=== PATIENT | female | born 1990 | race Caucasian/White ===

== ENCOUNTER 2018-07-12 14:26 | Emergency (ER) | payer OTHER, SELFPAY ==
[2018-07-12] MEDS ORDERED: METOCLOPRAMIDE 10 MG/2mL INJ ONE (15:51)
[2018-07-12] MEDS ORDERED: NA CHLORIDE 0.9% 1,000 ML ONE (15:52)
[2018-07-12] MEDS ORDERED: KETOROLAC 30 MG/ML INJ ONE (15:52)
[2018-07-12] MEDS ORDERED: DIPHENHYDRAMINE 50 MG/ML VIAL ONE (15:52)
--- NOTE | 2018-07-12 15:56 | RAD REPORT ---
EXAM DESCRIPTION: CT - Head Brain Wo Cont - 07/12/2018 3:19 pm CLINICAL HISTORY: HEADACHE COMPARISON: <Comparisons> TECHNIQUE: All CT scans are performed using dose optimization technique as appropriate and may inclu de automated exposure control or mA/KV adjustment according to patient size. FINDINGS: No intracranial hemorrhage, hydrocephalus or extra-axial fluid collection.No areas of brai n edema or evidence of midline shift. The paranasal sinuses and mastoids are clear. The calvarium is intact. IMPRESSION: No acute intracranial abnormality.
--- NOTE | 2018-07-12 16:47 | EDPHYS ---
Physician Documentation [facility] Name: Jeny Crum Age: 28 yrs Sex: Female : 1990 Arrival Date: 07/12/2018 Time: 14:31 Bed 14 Private MD: None, None ED Physician Oscar Betts HPI: 07/12 15:23 This 28 yrs old Female presents to ER via Ambulatory with complaints of kb Headache. 15:23 The patient complains of pain to the entire head. The patient describes the headache as kb constant. Onset: The symptoms/episode began/occurred 10 day(s) ago. Associated signs and symptoms: Pertinent positives: Photophobia muscle tightness in shoulders and neck. Severity of symptoms: At its worst the pain was moderate, in the emergency department the pain is unchanged. Headache History: Denies prior headaches. The symptoms are alleviated by nothing. the symptoms are aggravated by nothing. The patient has not experienced similar symptoms in the past. The patient has not recently seen a physician. 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 - Social history:: Smoking status: Patient uses tobacco products, smokes one-half pack cigarettes per day. - Ebola Screening: : Patient denies travel to an Ebola-affected area in the 21 days before illness onset. ROS: 15:23 Constitutional: Negative for fever, chills, and weight loss, ENT: Negative for injury, kb pain, and discharge, Neck: Negative for injury, pain, and swelling, Cardiovascular: Negative for chest pain, palpitations, and edema, Respiratory: Negative for shortness of breath, cough, wheezing, and pleuritic chest pain, Abdomen/GI: Negative for abdominal pain, nausea, vomiting, diarrhea, and constipation, Back: Negative for injury and pain, MS/Extremity: Negative for injury and deformity, Skin: Negative for injury, rash, and discoloration. 15:23 Neuro: Positive for headache. Exam: 15:23 Constitutional: This is a well developed, well nourished patient who is awake, alert, kb and in no acute distress. Head/Face: Normocephalic, atraumatic. ENT: Nares patent. No nasal discharge, no septal abnormalities noted. Tympanic membranes are normal and external auditory canals are clear. Oropharynx with no redness, swelling, or masses, exudates, or evidence of obstruction, uvula midline. Mucous membranes moist. Neck: Trachea midline, no thyromegaly or masses palpated, and no cervical lymphadenopathy. Supple, full range of motion without nuchal rigidity, or vertebral point tenderness. No Meningismus. Chest/axilla: Normal chest wall appearance and motion. Nontender with no deformity. No lesions are appreciated. Cardiovascular: Regular rate and rhythm with a normal S1 and S2. No gallops, murmurs, or rubs. Normal PMI, no JVD. No pulse deficits. Respiratory: Lungs have equal breath sounds bilaterally, clear to auscultation and percussion. No rales, rhonchi or wheezes noted. No increased work of breathing, no retractions or nasal flaring. Abdomen/GI: Soft, non-tender, with normal bowel sounds. No distension or tympany. No guarding or rebound. No evidence of tenderness throughout. Skin: Warm, dry with normal turgor. Normal color with no rashes, no lesions, and no evidence of cellulitis. MS/ Extremity: Pulses equal, no cyanosis. Neurovascular intact. Full, normal range of motion. Neuro: Awake and alert, GCS 15, oriented to person, place, time, and situation. Cranial nerves II-XII grossly intact. Motor strength 5/5 in all extremities. Sensory grossly intact. Cerebellar exam normal. Normal gait. Vital Signs: 14:47 BP 114 / 94; Pulse 68; Resp 17; Temp 97.5(TE); Pulse Ox 100% on R/A; Weight 53.07 kg tw2 (R); Pain 8/10; 15:51 BP 120 / 89; Pulse 69; Resp 16; Pulse Ox 100% on R/A; rb1 16:50 BP 107 / 79; Pulse 69; Resp 17; Pulse Ox 100% on R/A; Pain 7/10; rb1 17:25 BP 103 / 74; Pulse 61; Resp 16; Pulse Ox 100% on R/A; rb1 [place] Coma Score: 15:23 Eye Response: spontaneous(4). Verbal Response: oriented(5). Motor Response: obeys kb commands(6). Total: 15. MDM: 14:53 Patient medically screened. kb 15:23 Data reviewed: vital signs, nurses notes. Data interpreted: Pulse oximetry: on room air kb is 100 %. Interpretation: normal. 16:46 Counseling: I had a detailed discussion with the patient and/or guardian regarding: the kb historical points, exam findings, and any diagnostic results supporting the discharge/admit diagnosis, radiology results, the need for outpatient follow up, a family practitioner, to return to the emergency department if symptoms worsen or persist or if there are any questions or concerns that arise at home. ED course: Pt reports she is feeling much better after treatment.. 07/12 16:16 Order name: Urine Dipstick--Ancillary (enter results); Complete Time: 17:14 em1 07/12 16:16 Order name: Urine --Ancillary (enter results); Complete Time: 17:14 em1 07/12 15:05 Order name: CT Head Brain wo Cont; Complete Time: 16:00 kb 07/12 14:53 Order name: Urine Dipstick-Ancillary (obtain specimen); Complete Time: 16:14 kb 07/12 15:05 Order name: IV Start; Complete Time: 15:41 kb Administered Medications: 15:50 Drug: NS 0.9% 1000 ml Route: IV; Rate: 1000 ml; Site: right antecubital; rb1 16:56 Follow up: IV Status: Completed infusion rb1 15:50 Drug: TORadol 30 mg Route: IVP; Site: right antecubital; rb1 16:05 Follow up: Response: No adverse reaction; Pain is decreased rb1 15:50 Drug: Reglan 10 mg Route: IVP; Site: right antecubital; rb1 16:05 Follow up: Response: No adverse reaction rb1 15:50 Drug: Benadryl 12.5 mg Route: IVP; Site: right antecubital; rb1 16:05 Follow up: Response: No adverse reaction rb1 Disposition: 07/12/18 16:46 Discharged to Home. Impression: Headache. - Condition is Stable. - Discharge Instructions: Migraine Headache, [id number]. - Medication Reconciliation Form, Thank You Letter, Antibiotic Education, Prescription Opioid Use form. - Follow up: Emergency Department; When: As needed; Reason: Worsening of condition. Follow up: Private Physician; When: 2 - 3 days; Reason: Recheck today's complaints, Continuance of care, Re-evaluation by your physician. Signatures: Dispatcher [employer] EDGA Jodi Erwin, FIELD REP-C FIELD REP-Leanne Rangel, RN RN rb1 Judy Mora RN RN tw2 Corrections: (The following items were deleted from the chart) 17:33 16:46 07/12/2018 16:46 Discharged to Home. Impression: Headache. Condition is Stable. rb1 Forms are Medication Reconciliation Form, Thank You Letter, Antibiotic Education, Prescription Opioid Use. Follow up: Emergency Department; When: As needed; Reason: Worsening of condition. Follow up: Private Physician; When: 2 - 3 days; Reason: Recheck today's complaints, Continuance of care, Re-evaluation by your physician. kb
--- NOTE | 2018-07-12 16:47 | ER ---
Nurse's Notes [facility] Name: Jeny Crum Age: 28 yrs Sex: Female : 1990 Arrival Date: 07/12/2018 Time: 14:31 Bed 14 Private MD: None, None Diagnosis: Headache Presentation: 07/12 14:45 Presenting complaint: Patient states: i started having a migraine a week and a half ago tw2 and it has been constant since then, now its into my neck and back, i had a professional massage but it is not relieving my headache, i cant drive because of the light sensitivity, family hx of migraines. Transition of care: patient was not received from another setting of care. Onset of symptoms was July 12, 2018. Risk Assessment: Do you want to hurt yourself or someone else? Patient reports no desire to harm self or others. Initial Sepsis Screen: Does the patient meet any 2 criteria? No. Patient's initial sepsis screen is negative. Does the patient have a suspected source of infection? No. Patient's initial sepsis screen is negative. Care prior to arrival: None. 14:45 Method Of Arrival: Ambulatory tw2 14:45 Acuity: MIGUEL ANGEL 3 tw2 Triage Assessment: 14:48 Headache History: The patient has had previous headaches and this one is different than tw2 previous episodes, and this one is more severe than previous episodes. General: Appears uncomfortable, slender, Behavior is calm, cooperative, appropriate for age. Pain: Pain currently is 9 out of 10 on a pain scale. Pain began 2-3 days ago. Aggravated by photosensitiviey Also complains of nausea, inability to perform activities of daily living. Neuro: Level of Consciousness is awake, alert, obeys commands, Oriented to person, place, time, situation. 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 - Social history:: Smoking status: Patient uses tobacco products, smokes one-half pack cigarettes per day. - Ebola Screening: : Patient denies travel to an Ebola-affected area in the 21 days before illness onset. Screenin:55 Abuse screen: Denies threats or abuse. Nutritional screening: No deficits noted. rb1 Tuberculosis screening: No symptoms or risk factors identified. Fall Risk None identified. Assessment: 14:55 General: Appears in no apparent distress. comfortable, Behavior is calm, cooperative. rb1 Pain: Complains of pain in head Pain currently is 10 out of 10 on a pain scale. Neuro: Level of Consciousness is awake, alert, obeys commands, Oriented to person, place, time, situation. Cardiovascular: Capillary refill < 3 seconds is brisk in bilateral fingers. Respiratory: Airway is patent Respiratory effort is even, unlabored, Respiratory pattern is regular, symmetrical. GI: No signs and/or symptoms were reported involving the gastrointestinal system. : No signs and/or symptoms were reported regarding the genitourinary system. Derm: Skin is pink, warm \T\ dry. 15:55 Reassessment: Patient appears in no apparent distress at this time. Patient and/or rb1 family updated on plan of care and expected duration. Pain level reassessed. Patient is alert, oriented x 3, equal unlabored respirations, skin warm/dry/pink. 16:53 Reassessment: Patient appears in no apparent distress at this time. Patient states rb1 symptoms have improved. Vital Signs: 14:47 BP 114 / 94; Pulse 68; Resp 17; Temp 97.5(TE); Pulse Ox 100% on R/A; Weight 53.07 kg tw2 (R); Pain 8/10; 15:51 BP 120 / 89; Pulse 69; Resp 16; Pulse Ox 100% on R/A; rb1 16:50 BP 107 / 79; Pulse 69; Resp 17; Pulse Ox 100% on R/A; Pain 7/10; rb1 17:25 BP 103 / 74; Pulse 61; Resp 16; Pulse Ox 100% on R/A; rb1 [place] Coma Score: 15:23 Eye Response: spontaneous(4). Verbal Response: oriented(5). Motor Response: obeys kb commands(6). Total: 15. ED Course: 14:31 Patient arrived in ED. mr 14:31 None, None is Private Physician. mr 14:47 Triage completed. tw2 14:48 Arm band placed on. tw2 14:53 Jodi Erwin FNP-C is [facility]. kb 14:53 Oscar Betts MD is Attending Physician. kb 14:55 Patient has correct armband on for positive identification. Bed in low position. Call rb1 light in reach. Side rails up X 1. Pulse ox on. NIBP on. Warm blanket given. 15:00 Leanne Denis, RN is Primary Nurse. rb1 15:[address] via wheelchair. sw 15:17 CT completed. Patient tolerated procedure well. Patient moved back from CT. sw 15:19 CT Head Brain wo Cont In Process Unspecified. EDMS 15:41 Inserted saline lock: 22 gauge in right antecubital area, using aseptic technique. em1 17:33 No provider procedures requiring assistance completed. IV discontinued, intact, rb1 bleeding controlled, No redness/swelling at site. Pressure dressing applied. Administered Medications: 15:50 Drug: NS 0.9% 1000 ml Route: IV; Rate: 1000 ml; Site: right antecubital; rb1 16:56 Follow up: IV Status: Completed infusion rb1 15:50 Drug: TORadol 30 mg Route: IVP; Site: right antecubital; rb1 16:05 Follow up: Response: No adverse reaction; Pain is decreased rb1 15:50 Drug: Reglan 10 mg Route: IVP; Site: right antecubital; rb1 16:05 Follow up: Response: No adverse reaction rb1 15:50 Drug: Benadryl 12.5 mg Route: IVP; Site: right antecubital; rb1 16:05 Follow up: Response: No adverse reaction rb1 Outcome: 16:46 Discharge ordered by . kb 17:33 Patient left the ED. rb1 17:33 Discharged to home ambulatory, with family. rb1 17:33 Condition: stable 17:33 Discharge instructions given to patient, Instructed on discharge instructions, follow up and referral plans. Demonstrated understanding of instructions, follow-up care, Prescriptions given X none Signatures: Dispatcher [employer] EDWV Jodi Erwin FNP-C FNP-Ckb Deja Layton Eric em1 Millie Mccormick Leanne Denis, RN RN rb1 Judy Mora RN RN tw2
[2018-07-12 17:13] LABS: Urine Blood NEGATIVE (NEG); Urine Glucose NEGATIVE (NEG); Urine Protein NEGATIVE (NEG); Urine pH 7.5 (5.0-7.0)
== END 2018-07-12 17:33 | disposition home or self-care (01) ==
LOC: ER 14:26
DX: R51 Headache (principal); F41.0 Panic disorder [episodic paroxysmal anxiety]; F17.210 Nicotine dependence, cigarettes, uncomplicated
CPT/HCPCS: 70450; 81003; 81025; 96361; 96374; 96375; 99284; J2765; J7030

== ENCOUNTER 2018-07-17 20:34 | Emergency (ER) | payer SELFPAY ==
[2018-07-17 21:35] LABS: Urine Blood NEGATIVE (NEG); Urine Glucose NEGATIVE (NEG); Urine Protein NEGATIVE (NEG); Urine pH 7.5 (5.0-7.0)
--- NOTE | 2018-07-17 22:10 | ER ---
Nurse's Notes [facility] Name: Jeny Crum Age: 28 yrs Sex: Female : 1990 Arrival Date: 07/17/2018 Time: 20:36 Bed 6 Private MD: Diagnosis: Low back pain Presentation: 07/17 21:09 Presenting complaint: Patient states: right flak pain X2 weeks. Transition of care: ak1 patient was not received from another setting of care. Onset of symptoms is unknown. Risk Assessment: Do you want to hurt yourself or someone else? Patient reports no desire to harm self or others. Initial Sepsis Screen: Does the patient meet any 2 criteria? No. Patient's initial sepsis screen is negative. Does the patient have a suspected source of infection? No. Patient's initial sepsis screen is negative. Care prior to arrival: None. 21:09 Method Of Arrival: Ambulatory ak1 21:09 Acuity: MIGUEL ANGEL 4 ak1 Triage Assessment: 21:11 General: Appears in no apparent distress. Behavior is calm, cooperative. 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 - Social history:: Smoking status: Patient uses tobacco products, smokes one-half pack cigarettes per day. - Ebola Screening: : No symptoms or risks identified at this time. Screenin:30 Abuse screen: Denies threats or abuse. Denies injuries from another. Nutritional lp1 screening: No deficits noted. Tuberculosis screening: No symptoms or risk factors identified. Fall Risk None identified. Assessment: 21:30 General: Appears in no apparent distress. Behavior is appropriate for age. Pain: lp1 Complains of pain in right low back Aggravated by increased activity. Neuro: No deficits noted. Cardiovascular: No deficits noted. Respiratory: No deficits noted. GI: No deficits noted. : Denies burning with urination, urinary frequency. EENT: No deficits noted. Derm: Skin is pink, warm \T\ dry. Musculoskeletal: No deficits noted. 22:45 Reassessment: Patient states pain to right flank and headache relieved Patient states lp1 feeling better. Patient states symptoms have improved. Vital Signs: 21:08 BP 130 / 97; Pulse 66; Resp 18; Temp 97.6; Pulse Ox 100% on R/A; Weight 58.97 kg (R); ak1 Height 5 ft. 5 in. (165.10 cm) (R); Pain 6/10; 22:30 BP 124 / 82; Pulse 61; Resp 16; Pulse Ox 100% on R/A; lp1 21:08 Body Mass Index 21.63 (58.97 kg, 165.10 cm) ak1 ED Course: 20:36 Patient arrived in ED. as 20:50 Darnell Guzmán NP is PHCP. pm1 20:50 Oscar Betts MD is Attending Physician. pm1 20:59 Nely Alcala, ANNE MARIE is Primary Nurse. ak1 21:08 Arm band placed on Patient placed in an exam room, on a stretcher, on pulse oximetry, ak1 Patient notified of wait time. 21:10 Triage completed. ak1 21:30 Patient has correct armband on for positive identification. lp1 22:05 Pelvis XRAY In Process Unspecified. EDMS 22:30 No provider procedures requiring assistance completed. Patient did not have IV access lp1 during this emergency room visit. Administered Medications: 22:26 Drug: TORadol 60 mg Route: IM; Site: right gluteus; ak1 22:45 Follow up: Response: Pain is decreased lp1 Outcome: 22:09 Discharge ordered by . pm1 22:47 Discharged to home ambulatory. lp1 22:47 Condition: good 22:47 Discharge instructions given to patient, Instructed on discharge instructions, follow up and referral plans. medication usage, Demonstrated understanding of instructions, follow-up care, medications, Prescriptions given X 2. 22:48 Patient left the ED. lp1 Signatures: Dispatcher [employer] EDMS Anette Duncan Laura, RN RN lp1 Nely Alcala, ANNE MARIE RN ak1 Darnell Guzmán NP SOFTWARE DEVELOPMENT COORDINATOR pm1
--- NOTE | 2018-07-17 22:10 | EDPHYS ---
Physician Documentation [facility] Name: Jeny Crum Age: 28 yrs Sex: Female : 1990 Arrival Date: 07/17/2018 Time: 20:36 Bed 6 Private MD: ED Physician Oscar Betts HPI: 07/17 22:05 This 28 yrs old Female presents to ER via Ambulatory with complaints of Back pm1 Pain. 22:05 The patient presents with pain that is acute. The symptoms are located in the low back. pm1 Onset: The symptoms/episode began/occurred 1 week(s) ago. The pain does not radiate. Associated signs and symptoms: Pertinent negatives: abdominal pain, dysuria, fever, hematuria, numbness, tingling, weakness. The problem was sustained from unknown cause. Modifying factors: The patient symptoms are alleviated by nothing, the patient symptoms are aggravated by nothing. Severity of symptoms: in the emergency department the symptoms are unchanged. The patient has not experienced similar symptoms in the past. The patient has been recently seen by a physician: with different complaint(s). 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 - Social history:: Smoking status: Patient uses tobacco products, smokes one-half pack cigarettes per day. - Ebola Screening: : No symptoms or risks identified at this time. ROS: 22:05 Constitutional: Negative for fever, chills, and weight loss, Eyes: Negative for injury, pm1 pain, redness, and discharge, ENT: Negative for injury, pain, and discharge, Neck: Negative for injury, pain, and swelling, Cardiovascular: Negative for chest pain, palpitations, and edema, Respiratory: Negative for shortness of breath, cough, wheezing, and pleuritic chest pain, Abdomen/GI: Negative for abdominal pain, nausea, vomiting, diarrhea, and constipation. 22:05 : Negative for injury, bleeding, discharge, and swelling, MS/Extremity: Negative for injury and deformity, Skin: Negative for injury, rash, and discoloration, Neuro: Negative for headache, weakness, numbness, tingling, and seizure. 22:05 Back: Positive for of the right low back over iliac crest, pain. Exam: 22:05 Constitutional: This is a well developed, well nourished patient who is awake, alert, pm1 and in no acute distress. Head/Face: Normocephalic, atraumatic. Eyes: Pupils equal round and reactive to light, extra-ocular motions intact. Lids and lashes normal. Conjunctiva and sclera are non-icteric and not injected. Cornea within normal limits. Periorbital areas with no swelling, redness, or edema. ENT: Nares patent. No nasal discharge, no septal abnormalities noted. Tympanic membranes are normal and external auditory canals are clear. Oropharynx with no redness, swelling, or masses, exudates, or evidence of obstruction, uvula midline. Mucous membranes moist. Neck: Trachea midline, no thyromegaly or masses palpated, and no cervical lymphadenopathy. Supple, full range of motion without nuchal rigidity, or vertebral point tenderness. No Meningismus. Chest/axilla: Normal chest wall appearance and motion. Nontender with no deformity. No lesions are appreciated. Cardiovascular: Regular rate and rhythm with a normal S1 and S2. No gallops, murmurs, or rubs. Normal PMI, no JVD. No pulse deficits. Respiratory: Lungs have equal breath sounds bilaterally, clear to auscultation and percussion. No rales, rhonchi or wheezes noted. No increased work of breathing, no retractions or nasal flaring. 22:05 Abdomen/GI: Soft, non-tender, with normal bowel sounds. No distension or tympany. No pm1 guarding or rebound. No evidence of tenderness throughout. 22:05 Skin: Warm, dry with normal turgor. Normal color with no rashes, no lesions, and no evidence of cellulitis. MS/ Extremity: Pulses equal, no cyanosis. Neurovascular intact. Full, normal range of motion. 22:05 Back: pain, that is mild, of the right low back focal point over iliac crest, normal spinal alignment noted, CVA tenderness, is absent. 22:05 Neuro: Orientation: is normal, Motor: is normal, Gait: is steady, at a normal pace, without difficulty. Vital Signs: 21:08 BP 130 / 97; Pulse 66; Resp 18; Temp 97.6; Pulse Ox 100% on R/A; Weight 58.97 kg (R); ak1 Height 5 ft. 5 in. (165.10 cm) (R); Pain 6/10; 22:30 BP 124 / 82; Pulse 61; Resp 16; Pulse Ox 100% on R/A; lp1 21:08 Body Mass Index 21.63 (58.97 kg, 165.10 cm) ak1 MDM: 20:51 Patient medically screened. pm1 21:41 Data reviewed: vital signs. Data interpreted: Pulse oximetry: on room air is 100 %. pm1 Interpretation: normal. 22:09 Counseling: I had a detailed discussion with the patient and/or guardian regarding: the pm1 historical points, exam findings, and any diagnostic results supporting the discharge/admit diagnosis, radiology results, the need for outpatient follow up, to return to the emergency department if symptoms worsen or persist or if there are any questions or concerns that arise at home. 23:00 ED course: Pain improvement with toradol. pm1 07/17 21:21 Order name: Urine Dipstick--Ancillary (enter results); Complete Time: 21:41 mw2 07/17 21:21 Order name: Urine --Ancillary (enter results); Complete Time: 21:41 mw2 07/17 21:04 Order name: Urine Dipstick-Ancillary (obtain specimen); Complete Time: 21:12 pm1 07/17 21:04 Order name: Urine Test (obtain specimen); Complete Time: 21:12 pm1 07/17 21:04 Order name: Pelvis XRAY pm1 Administered Medications: 22:26 Drug: TORadol 60 mg Route: IM; Site: right gluteus; ak1 22:45 Follow up: Response: Pain is decreased lp1 Disposition: 07/17/18 22:09 Discharged to Home. Impression: Low back pain. - Condition is Stable. - Discharge Instructions: Back Pain, Adult, Musculoskeletal Pain. - Prescriptions for Cyclobenzaprine 10 mg Oral Tablet - take 1 tablet by ORAL route every 8 hours As needed; 30 tablet. Diclofenac Sodium 75 mg Oral Tablet Sustained Release - take 1 tablet by ORAL route 2 times per day; 30 tablet. - Work release form, Medication Reconciliation Form, Thank You Letter, Antibiotic Education, Prescription Opioid Use form. - Follow up: Emergency Department; When: As needed; Reason: Worsening of condition. Follow up: Private Physician; When: 2 - 3 days; Reason: Recheck today's complaints, Continuance of care, Re-evaluation by your physician. - Problem is new. - Symptoms have improved. Signatures: Dispatcher [employer] EDMS Krysta Jacome RN RN lp1 Nely Alcala RN RN ak1 Darnell Guzmán, REJOINER REJOINER pm1 Corrections: (The following items were deleted from the chart) 22:48 22:09 07/17/2018 22:09 Discharged to Home. Impression: Low back pain. Condition is lp1 Stable. Forms are Medication Reconciliation Form, Thank You Letter, Antibiotic Education, Prescription Opioid Use. Follow up: Emergency Department; When: As needed; Reason: Worsening of condition. Follow up: Private Physician; When: 2 - 3 days; Reason: Recheck today's complaints, Continuance of care, Re-evaluation by your physician. Problem is new. Symptoms have improved. pm1 07/18 02:09 04 22:05 Back: Positive for of the right low back over iliac crest, pm1 pm1
[2018-07-17] MEDS ORDERED: KETOROLAC 30 MG/ML INJ ONE (22:32)
--- NOTE | 2018-07-18 08:15 | RAD REPORT ---
EXAM DESCRIPTION: RAD - Pelvis - 07/17/2018 10:05 pm CLINICAL HISTORY: Pelvic pain, flank pain COMPARISON: None. TECHNIQUE: AP imaging of the pelvis was obtained. FINDINGS: No fracture or focal abnormality of the bony pelvis, sacrum, hip joints or proximal femurs . No suspicious soft tissue finding. Kidneys and proximal most aspect of the ureters obscured on this pelvis film. There is a small 2- 3 millimeter calcification along the left pelvic floor. This is pot entially any ureteral calculus. However, clinical history indicates right-sided flank pain. There is no right-sided calcification. IMPRESSION: No significant or suspicious bone, joint or soft tissue finding.
== END 2018-07-17 22:48 | disposition home or self-care (01) ==
LOC: ER 20:34
DX: M54.5 Low back pain (principal); Z88.8 Allergy status to other drugs, medicaments and biological substances; F17.210 Nicotine dependence, cigarettes, uncomplicated
CPT/HCPCS: 72170; 81003; 81025; 96372; 99284

== ENCOUNTER 2019-01-18 20:16 | Emergency (ER) | payer SELFPAY ==
[2019-01-18] MEDS ORDERED: METHYLPREDNISOLONE 125 MG INJ ONE (20:59)
[2019-01-18] MEDS ORDERED: IPRATROPIUM BROM 0.5MG/2.5ML ONE (20:59)
[2019-01-18] MEDS ORDERED: ALBUTEROL 2.5 MG/3 ML NEB SOL ONE ×2 (20:59→22:18)
[2019-01-18] MEDS ORDERED: Magnesium Sulfate 2gm IVPB 2 G/50 ML BAG IV ONE (21:00)
--- NOTE | 2019-01-18 22:38 | EDPHYS ---
Physician Documentation [facility] Name: Jeny Crum Age: 28 yrs Sex: Female : 1990 Arrival Date: 01/18/2019 Time: 20:19 Bed 6 Private MD: ED Physician Noble Mantilla HPI: 01/18 22:32 This 28 yrs old Female presents to ER via Ambulatory with complaints of kb Shortness Of Breath, wheezing. 22:33 The patient presents to the emergency department with wheezing, Current therapy: kb albuterol inhaler, that began without any particular precipitating event, the patient was reported to have audible wheezing, trouble breathing. Onset: The symptoms/episode began/occurred 1 week(s) ago. Modifying factors: The symptoms are alleviated by nothing, the symptoms are aggravated by nothing. Associated signs and symptoms: The patient has no apparent associated signs or symptoms. Severity of symptoms: At their worst the symptoms were moderate in the emergency department the symptoms are unchanged. The patient has not experienced similar symptoms in the past. The patient has been recently seen by a physician:. Pt reports wheezing, shortness of breath and cough since last week. Went to PCP and was given a prescription for z-pack which she finished 2 days ago. Still having wheezing. . 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 - Social history:: Smoking status: Patient uses tobacco products, smokes one-half pack cigarettes per day. - Ebola Screening: : Patient denies travel to an Ebola-affected area in the 21 days before illness onset. ROS: 22:33 Constitutional: Negative for fever, chills, and weight loss, ENT: Negative for injury, kb pain, and discharge, Neck: Negative for injury, pain, and swelling, Cardiovascular: Negative for chest pain, palpitations, and edema, Abdomen/GI: Negative for abdominal pain, nausea, vomiting, diarrhea, and constipation, Back: Negative for injury and pain, MS/Extremity: Negative for injury and deformity, Skin: Negative for injury, rash, and discoloration, Neuro: Negative for headache, weakness, numbness, tingling, and seizure. 22:33 Respiratory: Positive for cough, with no reported sputum, shortness of breath, wheezing. Exam: 22:33 Constitutional: This is a well developed, well nourished patient who is awake, alert, kb and in no acute distress. Head/Face: Normocephalic, atraumatic. Neck: Trachea midline, no thyromegaly or masses palpated, and no cervical lymphadenopathy. Supple, full range of motion without nuchal rigidity, or vertebral point tenderness. No Meningismus. Chest/axilla: Normal chest wall appearance and motion. Nontender with no deformity. No lesions are appreciated. Cardiovascular: Regular rate and rhythm with a normal S1 and S2. No gallops, murmurs, or rubs. Normal PMI, no JVD. No pulse deficits. Abdomen/GI: Soft, non-tender, with normal bowel sounds. No distension or tympany. No guarding or rebound. No evidence of tenderness throughout. Back: No spinal tenderness. No costovertebral tenderness. Full range of motion. Skin: Warm, dry with normal turgor. Normal color with no rashes, no lesions, and no evidence of cellulitis. MS/ Extremity: Pulses equal, no cyanosis. Neurovascular intact. Full, normal range of motion. Neuro: Awake and alert, GCS 15, oriented to person, place, time, and situation. Cranial nerves II-XII grossly intact. Motor strength 5/5 in all extremities. Sensory grossly intact. Cerebellar exam normal. Normal gait. 22:33 Respiratory: the patient does not display signs of respiratory distress, Respirations: normal, Breath sounds: rhonchi, that are moderate, are located in both bases, wheezing: that is moderate, is heard diffusely. Vital Signs: 20:29 BP 109 / 85; Pulse 88; Resp 18; Temp 97.8; Pulse Ox 99% on R/A; Weight 52.62 kg (R); aj1 Height 5 ft. 2 in. (157.48 cm) (R); Pain 5/10; 21:33 BP 113 / 68; Pulse 78; Resp 18; Pulse Ox 100% on 100% Nebulizer Mask; ak1 22:47 BP 109 / 84; Pulse 80; Resp 16; Temp 98; Pulse Ox 100% on R/A; ak1 20:29 Body Mass Index 21.22 (52.62 kg, 157.48 cm) aj1 MDM: 20:31 Patient medically screened. kb 22:33 Data reviewed: vital signs, nurses notes. Data interpreted: Pulse oximetry: on room air kb is 100 %. Interpretation: normal. Counseling: I had a detailed discussion with the patient and/or guardian regarding: the historical points, exam findings, and any diagnostic results supporting the discharge/admit diagnosis, radiology results, the need for outpatient follow up, a family practitioner, to return to the emergency department if symptoms worsen or persist or if there are any questions or concerns that arise at home. 22:36 ED course: Lung sounds improved after first treatment, pt states she is feeling better. kb . 01/18 20:57 Order name: Chest Pa And Lat (2 Views) XRAY kb Administered Medications: 21:08 Drug: SOLU-Medrol 125 mg Route: IVP; Site: right antecubital; ak1 22:02 Follow up: Response: No adverse reaction ak1 21:17 Drug: DuoNeb (3:1) (2.5 mg - 0.5 mg) 3 ml Route: Nebulizer; ak1 22:02 Follow up: Response: No adverse reaction; Wheezing diminished ak1 21:18 Drug: Magnesium Sulfate 2 grams Route: IVPB; Infused Over: 2 hrs; Site: right ak1 antecubital; 21:40 Follow up: IV Status: Completed infusion ak1 22:22 Drug: Albuterol 2.5 mg Route: Inhalation; ak1 22:59 Follow up: Response: No adverse reaction; Wheezing diminished ak1 Disposition: 01/19 07:12 Co-signature as Attending Physician, Noble Mantilla MD Available for consultation at ps1 all times . Disposition: 01/18/19 22:37 Discharged to Home. Impression: Asthma, Bronchitis, not specified as acute or chronic. - Condition is Stable. - Discharge Instructions: Acute Bronchitis, [id number], Asthma, Adult, Zyds-[id number], Viral Respiratory Infection, [id number]. - Prescriptions for Medrol ([place]) 4 mg Oral Tablets, Dose Pack - take 1 tablet by ORAL route as directed - follow package instructions; 1 packet. - Medication Reconciliation Form, Thank You Letter, Antibiotic Education, Prescription Opioid Use form. - Follow up: Emergency Department; When: As needed; Reason: Worsening of condition. Follow up: Private Physician; When: 2 - 3 days; Reason: Recheck today's complaints, Continuance of care, Re-evaluation by your physician. Signatures: Dispatcher [employer] EDRI Jodi Erwin, CASSIDY-C CASSIDY-Jeny Bae RN RN aj1 Nely Alcala RN RN ak1 Noble Mantilla MD MD ps1 Corrections: (The following items were deleted from the chart) 01/18 23:04 22:37 01/18/2019 22:37 Discharged to Home. Impression: Asthma; Bronchitis, not ak1 specified as acute or chronic. Condition is Stable. Forms are Medication Reconciliation Form, Thank You Letter, Antibiotic Education, Prescription Opioid Use. Follow up: Emergency Department; When: As needed; Reason: Worsening of condition. Follow up: Private Physician; When: 2 - 3 days; Reason: Recheck today's complaints, Continuance of care, Re-evaluation by your physician. kb
--- NOTE | 2019-01-18 22:38 | ER ---
Nurse's Notes [facility] Name: Jeny Crum Age: 28 yrs Sex: Female : 1990 Arrival Date: 01/18/2019 Time: 20:19 Bed 6 Private MD: Diagnosis: Asthma;Bronchitis, not specified as acute or chronic Presentation: 01/18 20:24 Presenting complaint: Patient states: "I went to the doctor last Wednesday for aj1 bronchitis and they gave me a Z-Pack. I have asthma, I have an albuterol inhaler, I rarely use it but now everyday I'm having to use it and when I lay down my wheezing is really bad. I'm really short of breath when I wake up, so I called my doctor and they said that it was just bronchitis, but I might need another inhaler or maybe a nebulizer, but they can't get me in until Wednesday. I'm having a hard time sleeping because of the wheezing and tightness" Patient also reports nasal congestion. Denies fever. Transition of care: patient was not received from another setting of care. Onset of symptoms was 2018. Risk Assessment: Do you want to hurt yourself or someone else? Patient reports no desire to harm self or others. Initial Sepsis Screen: Does the patient meet any 2 criteria? No. Patient's initial sepsis screen is negative. Does the patient have a suspected source of infection? Yes: Productive cough/pneumonia. Care prior to arrival: None. 20:24 Method Of Arrival: Ambulatory aj1 20:24 Acuity: MIGUEL ANGEL 3 aj1 Triage Assessment: 20:29 General: Appears in no apparent distress. comfortable, Behavior is calm, cooperative, aj1 appropriate for age. Pain: Complains of pain in chest Pain currently is 5 out of 10 on a pain scale. Neuro: Level of Consciousness is awake, alert, obeys commands, Oriented to person, place, time, situation. Cardiovascular: Reports chest pain, Patient's skin is warm and dry. Respiratory: Reports shortness of breath Airway is patent Respiratory effort is even, unlabored, Respiratory pattern is regular, symmetrical, Onset: The symptoms/episode began/occurred one week ago, the patient has mild shortness of breath. 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 - Social history:: Smoking status: Patient uses tobacco products, smokes one-half pack cigarettes per day. - Ebola Screening: : Patient denies travel to an Ebola-affected area in the 21 days before illness onset. Screenin:44 Abuse screen: Denies threats or abuse. Denies injuries from another. Nutritional ak1 screening: No deficits noted. Tuberculosis screening: No symptoms or risk factors identified. Fall Risk None identified. Assessment: 20:44 General: Appears in no apparent distress. comfortable, well groomed, Behavior is calm, ak1 cooperative. Neuro: Level of Consciousness is awake, alert, obeys commands, Oriented to person, place, time, situation, Friction Saw Operator are equal bilaterally Moves all extremities. Full function Speech is normal. Cardiovascular: Rhythm is regular. Respiratory: Reports shortness of breath at rest on exertion pt stated she feels as if she can not get a "full breath" cough that is non-productive, persistent Airway is patent Respiratory effort is even, unlabored, Respiratory pattern is regular. GI: No signs and/or symptoms were reported involving the gastrointestinal system. : No signs and/or symptoms were reported regarding the genitourinary system. EENT: No signs and/or symptoms were reported regarding the EENT system. Derm: No signs and/or symptoms reported regarding the dermatologic system. Musculoskeletal: No signs and/or symptoms reported regarding the musculoskeletal system. 20:44 Respiratory: Breath sounds with wheezes bilaterally. ak1 Vital Signs: 20:29 BP 109 / 85; Pulse 88; Resp 18; Temp 97.8; Pulse Ox 99% on R/A; Weight 52.62 kg (R); aj1 Height 5 ft. 2 in. (157.48 cm) (R); Pain 5/10; 21:33 BP 113 / 68; Pulse 78; Resp 18; Pulse Ox 100% on 100% Nebulizer Mask; ak1 22:47 BP 109 / 84; Pulse 80; Resp 16; Temp 98; Pulse Ox 100% on R/A; ak1 20:29 Body Mass Index 21.22 (52.62 kg, 157.48 cm) aj1 ED Course: 20:19 Patient arrived in ED. cl3 20:28 Triage completed. aj1 20:28 [facility]C [facility] kb 20:28 Noble Mantilla MD is Attending Physician. kb 20:29 Arm band placed on Patient placed in an exam room. aj1 20:44 Nely Alcala, RN is Primary Nurse. ak1 20:44 Patient has correct armband on for positive identification. Placed in gown. Bed in low ak1 position. Call light in reach. Side rails up X 1. Pulse ox on. NIBP on. 21:05 Inserted saline lock: 20 gauge in right antecubital area, using aseptic technique. oe 21:09 Chest Pa And Lat (2 Views) XRAY Sent. ak1 21:29 Chest Pa And Lat (2 Views) XRAY In Process Unspecified. EDMS 22:48 No provider procedures requiring assistance completed. IV discontinued, intact, ak1 bleeding controlled, No redness/swelling at site. Pressure dressing applied. Administered Medications: 21:08 Drug: SOLU-Medrol 125 mg Route: IVP; Site: right antecubital; ak1 22:02 Follow up: Response: No adverse reaction ak1 21:17 Drug: DuoNeb (3:1) (2.5 mg - 0.5 mg) 3 ml Route: Nebulizer; ak1 22:02 Follow up: Response: No adverse reaction; Wheezing diminished ak1 21:18 Drug: Magnesium Sulfate 2 grams Route: IVPB; Infused Over: 2 hrs; Site: right ak1 antecubital; 21:40 Follow up: IV Status: Completed infusion ak1 22:22 Drug: Albuterol 2.5 mg Route: Inhalation; ak1 22:59 Follow up: Response: No adverse reaction; Wheezing diminished ak1 Outcome: 22:37 Discharge ordered by . kb 22:48 Discharged to home ambulatory, with family. ak1 22:48 Condition: improved 22:48 Discharge instructions given to patient, family, Instructed on discharge instructions, follow up and referral plans. medication usage, Demonstrated understanding of instructions, follow-up care, medications, Prescriptions given X 1. 23:04 Patient left the ED. ak1 Signatures: Dispatcher [employer] EDMS Jodi Erwin, THERMAL SURFACING MACHINE OPERATOR-C THERMAL SURFACING MACHINE OPERATOR-Jeny Bae RN RN aj1 Nely Alcala RN RN ak1 Randy Bowers Charde cl3
[2019-01-18 23:13] VITALS: O2SAT 100
[2019-01-18 23:14] VITALS: BP 109/84; TEMP 98
--- NOTE | 2019-01-19 08:19 | RAD REPORT ---
EXAM DESCRIPTION: RAD - Chest Pa And Lat (2 Views) - 01/18/2019 9:29 pm CLINICAL HISTORY: DYSPNEA Chest pain. COMPARISON: No comparisons FINDINGS: The lungs are clear. The heart is normal in size. No displaced fractures. IMPRESSION: No acute finding demonstrated.
== END 2019-01-18 23:04 | disposition home or self-care (01) ==
LOC: ER 20:16
DX: J40 Bronchitis, not specified as acute or chronic (principal); J45.909 Unspecified asthma, uncomplicated; F17.210 Nicotine dependence, cigarettes, uncomplicated
CPT/HCPCS: 71046; 94640; 96365; 96375; 99284; J2930; J3475

== ENCOUNTER 2020-02-17 16:59 | Emergency (ER) | payer SELFPAY ==
--- OUTSIDE RECORDS SUMMARY | 2020-02-17 17:01 | XMS REPORT | Continuity of Care Document ---
:1990 Author Organization [facility] t Address [address] [place] [place] [address] Care Team Providers Name Role Phone Piter Clement Attending Clinician Pob1, Care Clinic Attending Clinician Unavailable Doctor Unassigned, Name Attending Clinician Unavailable Problems This patient has no known problems. Allergies, Adverse Reactions, Alerts This patient has no known allergies or adverse reactions. Medications This patient has no known medications. Procedures This patient has no known procedures. Encounters Start End Encounter Admission Attending Care Care Encounter Source Date/Time Date/Time Type Type Clinicians Facility Department ID 2019-11-18 2019-11-18 Telephone YAYA Clement [id number] 00:00:00 00:00:00 Rudy M FL[place] [id number] [place] [id number] 2019-11-16 2019-11-16 Urgent Pob1, Acute [facility] [id number] 14:36:58 15:23:59 [facility] [id number] [place] [id number] [place] [id number] [address] 2019-11-16 2019-11-16 Letter Doctor JAVIER [id number] 00:00:00 00:00:00 (Out) UnassignedFLORA [id number] [place] [id number] Results This patient has no known results.
[2020-02-17] MEDS ORDERED: KETOROLAC 30 MG/ML INJ ONE (18:26)
[2020-02-17] MEDS ORDERED: NA CHLORIDE 0.9% 1,000 ML ONE (18:26)
[2020-02-17] MEDS ORDERED: MORPHINE 2 MG/ML SYR ONE (18:26)
[2020-02-17] MEDS ORDERED: dexAMETHasone 4 MG/ML VIAL ONE (18:26)
[2020-02-17] MEDS ORDERED: ONDANSETRON 4 MG/2 ML VIAL ONE (18:26)
[2020-02-17 18:35] LABS: Absolute Lymphocytes (CBC) 1.5 K/uL (0.7-4.9); Basophils % 1.4 % (0-1.3); Hematocrit 37.9 % (36.0-45.0); Lymphocytes % 30.3 % (15.3-44.8); MPV 7.1 fL (7.6-11.3); RBC Red Blood Cell Count 3.93 M/uL (3.86-4.86)
[2020-02-17 18:38] LABS: Urine Blood NEGATIVE (NEG); Urine Glucose NEGATIVE (NEG); Urine Protein NEGATIVE (NEG); Urine Specific Gravity 1.015 (1.005-1.030)
[2020-02-17 18:47] LABS: ALT/SGPT 24 U/L (12-78); AST/SGOT 14 U/L (15-37); Albumin 5.1 g/dL (3.4-5.0); Alkaline Phosphatase 71 U/L (45-117); BUN Blood Urea Nitrogen 5 mg/dL (7-18); Bicarbonate 27 mmol/L (21-32); Bilirubin Total 0.3 mg/dL (0.2-1.0); Glucose Level 76 mg/dL (74-106); Potassium 3.6 mmol/L (3.5-5.1); Protein, Total 8.6 g/dL (6.4-8.2); Sodium Level 134 mmol/L (136-145)
--- NOTE | 2020-02-17 19:06 | RAD REPORT ---
EXAM DESCRIPTION: CT - C Spine Wo Con - 02/17/2020 6:47 pm CLINICAL HISTORY: Left radiculopathy COMPARISON: None. TECHNIQUE: Computed axial tomography of the cervical spine were obtained with sagittal and coronal r econstruction images generated and reviewed. All CT scans are performed using dose optimization technique as appropriate and may include automated exposure control or mA/KV adjustment according to patient size. FINDINGS: A cervical fracture is not seen. No dislocation No high-grade central/foraminal stenosis is noted. Small left paracentral disc herniation suspected C4-5 14 millimeter lucency is present within the left aspect of the clivus. The border is sclerotic Mild to moderate chronic ethmoid sinusitis IMPRESSION: A cervical fracture is not seen. Small left paracentral disc herniation suspected C4-5 If the patient continues have symptoms to suggest spinal cord/spinal canal pathology then MRI would b e recommended. 14 millimeter lucency within the clivus has a more benign than malignant appearance. Comparison to pr ior imaging would be helpful to assess stability. If unavailable follow-up CT head in 3 months would be recommended
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
--- NOTE | 2020-02-17 19:13 | EDPHYS ---
Physician Documentation [facility] Name: Jeny Crum Age: 29 yrs Sex: Female : 1990 Arrival Date: 02/17/2020 Time: 16:59 Bed 20 Private MD: FELISHA Physician Barrington Lind HPI: 02/16 18:10 This 29 yrs old Female presents to ER via Ambulatory with complaints of L Arm marco antonio numbness. 18:10 The patient or guardian complains of decreased range of motion, pain. The complaints marco antonio affect the left bicep, dorsal aspect of left forearm, left tricep and palmar aspect of left forearm. 18:10 Context: The problem was sustained at an unknown location, resulted from unknown cause. marco antonio Onset: The symptoms/episode began/occurred 1 month(s) ago. Treatment prior to arrival includes: no previous treatment. Modifying factors: The symptoms are alleviated by remaining still, the symptoms are aggravated by movement. The patient or guardian complains of decreased range of motion, pain, that is acute. The symptoms are located diffusely. Context: The problem was sustained at an unknown location. 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 - Social history:: Smoking status: Patient denies any tobacco usage or history of. ROS: 18:11 Constitutional: Negative for fever, chills, and weight loss, Eyes: Negative for injury, marco antonio pain, redness, and discharge, ENT: Negative for injury, pain, and discharge, Cardiovascular: Negative for chest pain, palpitations, and edema, Respiratory: Negative for shortness of breath, cough, wheezing, and pleuritic chest pain, Abdomen/GI: Negative for abdominal pain, nausea, vomiting, diarrhea, and constipation, Back: Negative for injury and pain, : Negative for injury, bleeding, discharge, and swelling, MS/Extremity: Negative for injury and deformity, Skin: Negative for injury, rash, and discoloration, Neuro: Negative for headache, weakness, numbness, tingling, and seizure, Psych: Negative for depression, anxiety, suicide ideation, homicidal ideation, and hallucinations, Allergy/Immunology: Negative for hives, rash, and allergies, Endocrine: Negative for neck swelling, polydipsia, polyuria, polyphagia, and marked weight changes, Hematologic/Lymphatic: Negative for swollen nodes, abnormal bleeding, and unusual bruising. 18:11 Neck: Positive for pain with movement, stiffness. Exam: 18:11 Constitutional: This is a well developed, well nourished patient who is awake, alert, marco antonio and in no acute distress. Head/Face: Normocephalic, atraumatic. Eyes: Pupils equal round and reactive to light, extra-ocular motions intact. Lids and lashes normal. Conjunctiva and sclera are non-icteric and not injected. Cornea within normal limits. Periorbital areas with no swelling, redness, or edema. ENT: Nares patent. No nasal discharge, no septal abnormalities noted. Tympanic membranes are normal and external auditory canals are clear. Oropharynx with no redness, swelling, or masses, exudates, or evidence of obstruction, uvula midline. Mucous membranes moist. Chest/axilla: Normal chest wall appearance and motion. Nontender with no deformity. No lesions are appreciated. Cardiovascular: Regular rate and rhythm with a normal S1 and S2. No gallops, murmurs, or rubs. Normal PMI, no JVD. No pulse deficits. Respiratory: Lungs have equal breath sounds bilaterally, clear to auscultation and percussion. No rales, rhonchi or wheezes noted. No increased work of breathing, no retractions or nasal flaring. Abdomen/GI: Soft, non-tender, with normal bowel sounds. No distension or tympany. No guarding or rebound. No evidence of tenderness throughout. Back: No spinal tenderness. No costovertebral tenderness. Full range of motion. Skin: Warm, dry with normal turgor. Normal color with no rashes, no lesions, and no evidence of cellulitis. MS/ Extremity: Pulses equal, no cyanosis. Neurovascular intact. Full, normal range of motion. Psych: Awake, alert, with orientation to person, place and time. Behavior, mood, and affect are within normal limits. 18:11 Neck: External neck: is normal, Thyroid: appears normal, no acute changes, Trachea: is midline with no obvious abnormalities, no acute changes, ROM/movement: pain, that is moderate, limited range of motion, that is mild, that is moderate, Lymph nodes: no appreciated lymphadenopathy. Vital Signs: 17:55 BP 124 / 100; Pulse 68; Resp 16; Temp 98.1; Pulse Ox 96% on R/A; Pain 9/10; hb 19:40 BP 115 / 82; Pulse 56; Resp 18; Pulse Ox 100% on R/A; wh MDM: 17:30 Patient medically screened. marco antonio 18:13 Differential diagnosis: Cervical Raiculopathy Cervical Spondylosis dislocation, closed marco antonio fracture, contusion, tendonitis, cervical strain, Degenerative Disc Disease Neck Contusion Spinal Cord Compression Spondylolisthesis Spondylosis subluxation, torticollis, Whiplash Injury. Data reviewed: vital signs, nurses notes, lab test result(s), radiologic studies, CT scan. Data interpreted: library monitor: rate is 68 beats/min, rhythm is regular, Pulse oximetry: on room air is 96 %. Counseling: I had a detailed discussion with the patient and/or guardian regarding: the historical points, exam findings, and any diagnostic results supporting the discharge/admit diagnosis, lab results, radiology results. Counseling: I had a detailed discussion with the patient and/or guardian regarding: the need for outpatient follow up, for definitive care, a neurosurgeon. 02/16 18: Order name: CBC with Diff; Complete Time: 19: [facility] 02/16 18:09 Order name: Comprehensive Metabolic Panel; Complete Time: 19: [facility] 02/16 18:09 Order name: CT C Spine; Complete Time: 19:08 [facility] 02/16 18:32 Order name: Urine Dipstick--Ancillary (enter results); Complete Time: 19: eb 02/16 18:32 Order name: Urine --Ancillary (enter results); Complete Time: 19: eb 02/16 18:09 Order name: Urine Dipstick-Ancillary (obtain specimen); Complete Time: 18:23 marco antonio 02/16 18:09 Order name: Urine Test (obtain specimen); Complete Time: 18:23 [facility] Administered Medications: 18:23 Drug: NS 0.9% 1000 ml Route: IV; Rate: 1 bolus; Site: right antecubital; hb 19:40 Follow up: Response: No adverse reaction; IV Status: Completed infusion wh 18:23 Drug: Decadron - Dexamethasone 6 mg Route: IVP; Site: right antecubital; hb 18:52 Follow up: Response: No adverse reaction hb 18:23 Drug: TORadol 30 mg Route: IVP; Site: right antecubital; hb 18:52 Follow up: Response: No adverse reaction hb 18:23 Drug: Zofran (Ondansetron) 4 mg Route: IVP; Site: right antecubital; hb 18:52 Follow up: Response: No adverse reaction hb 18:24 Drug: morphine 2 mg Route: IVP; Site: right antecubital; hb 18:52 Follow up: Response: No adverse reaction hb Disposition: 02/17/20 19:13 Discharged to Home. Impression: Radiculopathy, cervical region - C4-C5 small paracentral disc herniation, Strain of muscle, fascia and tendon at neck level. - Condition is Fair. - Discharge Instructions: Cervical Radiculopathy, Muscle Strain, Cervical Sprain, [id number], Cervical Radiculopathy, [id number], Radicular Pain. - Prescriptions for dexamethasone 2 mg Oral tablet - take 1 tablet by ORAL route 2 times per day; 14 tablet. Tylenol- Codeine #3 300-30 mg Oral Tablet - take 2 tablets by ORAL route every 6 hours As needed; 24 tablet. Motrin IB 200 mg Oral Tablet - take 2 tablet by ORAL route every 6 hours As needed as needed with food; 30 tablet. Cyclobenzaprine 5 mg Oral Tablet - take 1 tablet by ORAL route 3 times per day As needed; 15 tablet. - Medication Reconciliation Form, Thank You Letter, Antibiotic Education, Prescription Opioid Use form. - Follow up: Private Physician; When: 2 - 3 days; Reason: Recheck today's complaints, Re-evaluation by your physician. Follow up: ; When: 2 - 3 days; Reason: Recheck today's complaints, Re-evaluation by your physician. Follow up: Philip Boyce MD; When: 2 - 3 days; Reason: Recheck today's complaints, Re-evaluation by your physician. - Problem is new. - Symptoms have improved. Signatures: Dispatcher [employer] EDBarrington Kruger MD MD cha Mickail, Joel, PA PA jmm Williams, Irene, RN RN Faby Virk RN RN Abdulaziz Clay Corrections: (The following items were deleted from the chart) 19:24 19:13 02/17/2020 19:13 Discharged to Home. Impression: Radiculopathy, cervical region - marco antonio C4-C5 small paracentral disc herniation; Strain of muscle, fascia and tendon at neck level. Condition is Fair. Discharge Instructions: Cervical Radiculopathy, Muscle Strain, Cervical Sprain, [id number], Cervical Radiculopathy, Eymy-as-Oroy, Radicular Pain. Prescriptions for dexamethasone 2 mg Oral tablet - take 1 tablet by ORAL route 2 times per day; 14 tablet, Tylenol-Codeine #3 300-30 mg Oral Tablet - take 2 tablets by ORAL route every 6 hours As needed; 24 tablet, Motrin IB 200 mg Oral Tablet - take 2 tablet by ORAL route every 6 hours As needed as needed with food; 30 tablet, Cyclobenzaprine 5 mg Oral Tablet - take 1 tablet by ORAL route 3 times per day As needed; 15 tablet. and Forms are Medication Reconciliation Form, Thank You Letter, Antibiotic Education, Prescription Opioid Use. Follow up: Private Physician; When: 2 - 3 days; Reason: Recheck today's complaints, Re-evaluation by your physician. Follow up: Alec Palmer; When: 2 - 3 days; Reason: Recheck today's complaints, Re-evaluation by your physician. Problem is new. Symptoms have improved. [facility] 19:40 19:24 02/17/2020 19:13 Discharged to Home. Impression: Radiculopathy, cervical region - C4-C5 small paracentral disc herniation; Strain of muscle, fascia and tendon at neck level. Condition is Fair. Discharge Instructions: Cervical Radiculopathy, Muscle Strain, Cervical Sprain, [id number], Cervical Radiculopathy, Gbdg-[id number]-Mome, Radicular Pain. Prescriptions for dexamethasone 2 mg Oral tablet - take 1 tablet by ORAL route 2 times per day; 14 tablet, Tylenol-Codeine #3 300-30 mg Oral Tablet - take 2 tablets by ORAL route every 6 hours As needed; 24 tablet, Motrin IB 200 mg Oral Tablet - take 2 tablet by ORAL route every 6 hours As needed as needed with food; 30 tablet, Cyclobenzaprine 5 mg Oral Tablet - take 1 tablet by ORAL route 3 times per day As needed; 15 tablet. and Forms are Medication Reconciliation Form, Thank You Letter, Antibiotic Education, Prescription Opioid Use. Follow up: Private Physician; When: 2 - 3 days; Reason: Recheck today's complaints, Re-evaluation by your physician. Follow up: Philip Boyce; When: 2 - 3 days; Reason: Recheck today's complaints, Re-evaluation by your physician. Problem is new. Symptoms have improved. marco antonio
[2020-02-17 20:06] VITALS: TEMP 98.1
[2020-02-17 20:07] VITALS: BP 115/82; O2SAT 100
== END 2020-02-17 19:40 | disposition home or self-care (01) ==
LOC: ER 16:59
DX: M54.12 Radiculopathy, cervical region (principal); M50.221 Other cervical disc displacement at C4-C5 level; S16.1XXA Strain of muscle, fascia and tendon at neck level, initial encounter; J45.909 Unspecified asthma, uncomplicated; Z88.8 Allergy status to other drugs, medicaments and biological substances
CPT/HCPCS: 36415; 72125; 80053; 81003; 81025; 85025; 96361; 96374; 96375; 99284; J1100; J2270; J2405; J7030

== ENCOUNTER 2020-03-18 | Emergency (ER) | payer SELFPAY ==
--- OUTSIDE RECORDS SUMMARY | 2020-03-18 15:27 | XMS REPORT | Continuity of Care Document ---
:1990 Author Organization [facility] t Address [address] [place] [address] Care Team Providers Name Role Phone Piter [...] Department ID 2019-11-18 2019-11-18 Telephone YAYA Clement [id number] 00:00:00 00:00:00 Rudy M FLORA [id number] [place] [id number] [id number] 2019-11-16 2019-11-16 Urgent Pob1, Acute [facility] [id number] 14:36:58 15:23:59 [facility] [id number] [place] [id number] Professrobby [phone] [address] 2019-11-16 2019-11-16 Letter Doctor JAVIER [id number] 00:00:00 00:00:00 (Out) UnassignedFLORA [id number] [place] [phone] [id number] Results This patient has no known results.
--- NOTE | 2020-03-18 17:19 | ER ---
Nurse's Notes [facility] Name: Jeny Crum Age: 29 yrs Sex: Female : 1990 Arrival Date: 03/18/2020 Time: 15:01 Bed 24 Private MD: Diagnosis: Palpitations Presentation: 03/18 15:24 Chief complaint: Patient states: Father: Last week, she had steroid shots on my C6 and ca1 C7, because I have spinal stenosis on my C3 and C4. Ever since, my heart has been high, shaky and weak legs, light headed. I feel like the there is a heavy blanket pulling me, like I was going to pass out. Everyday, I do normal things, my heart starts racing. Pt appears anxious in triage, crying and states, "I'm not crazy for being here? Am I okay right now?". Coronavirus screen: Client denies travel out of the [place] in the last 14 days. At this time, the client does not indicate any symptoms associated with coronavirus-19. Ebola Screen: Patient negative for fever greater than or equal to 101.5 degrees Fahrenheit, and additional compatible Ebola Virus Disease symptoms Patient denies exposure to infectious person. Patient denies travel to an Ebola-affected area in the 21 days before illness onset. No symptoms or risks identified at this time. Initial Sepsis Screen: Does the patient meet any 2 criteria? No. Patient's initial sepsis screen is negative. Does the patient have a suspected source of infection? No. Patient's initial sepsis screen is negative. Risk Assessment: Do you want to hurt yourself or someone else? Patient reports no desire to harm self or others. Onset of symptoms was March 18, 2020. 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 - Social history:: Smoking status: Patient reports the use of cigarette tobacco products, smokes one-half pack cigarettes per day. - Family history:: not pertinent. - Hospitalizations: : No recent hospitalization is reported. Screenin:28 Abuse screen: Denies threats or abuse. Nutritional screening: No deficits noted. jd3 Tuberculosis screening: No symptoms or risk factors identified. Fall Risk Ambulatory Aid- None/Bed Rest/Nurse Assist (0 pts). Gait- Normal/Bed Rest/Wheelchair (0 pts) Mental Status- Oriented to own ability (0 pts). Total Toscano Fall Scale indicates No Risk (0-24 pts). Assessment: 17:26 General: Appears in no apparent distress. comfortable, Behavior is calm, cooperative, zb appropriate for age. Pain: Pain: Complains of pain in neck pain. Neuro: Level of Consciousness is awake, alert, obeys commands, Oriented to person, place, time, situation. Cardiovascular: Capillary refill < 3 seconds in bilateral fingers Patient's skin is warm and dry. Respiratory: Airway is patent Respiratory pattern is regular, symmetrical. GI: Abdomen is flat, non-distended. : No signs and/or symptoms were reported regarding the genitourinary system. EENT: No signs and/or symptoms were reported regarding the EENT system. Derm: No signs and/or symptoms reported regarding the dermatologic system. Skin is intact, is healthy with good turgor. Musculoskeletal: Circulation, motion, and sensation intact. Range of motion:. Vital Signs: 15:24 BP 117 / 89; Pulse 108; Resp 18 S; Temp 98.8(TE); Pulse Ox 100% on R/A; Weight 54.43 kg ca1 (R); Height 5 ft. 2 in. (157.48 cm) (R); 17:28 BP 122 / 86; Pulse 84; Resp 17 S; Pulse Ox 100% on R/A; jd3 15:24 Body Mass Index 21.95 (54.43 kg, 157.48 cm) ca1 ED Course: 15:01 Patient arrived in ED. ag5 15:29 Triage completed. ca1 15:30 Arm band placed on right wrist. ca1 16:36 Jessica Beebe, RN is Primary Nurse. zb 16:38 Jose Alejandro West MD is Attending Physician. rn 17:28 Patient has correct armband on for positive identification. Bed in low position. Call jd3 light in reach. Side rails up X 1. Adult w/ patient. Pulse ox on. NIBP on. 17:28 No provider procedures requiring assistance completed. Patient did not have IV access mary during this emergency room visit. Administered Medications: No medications were administered Outcome: 17:15 Discharge ordered by . rn 17:32 Discharged to home ambulatory, with family. cheryl 17:32 Condition: stable 17:32 Discharge instructions given to patient, family, Instructed on discharge instructions, follow up and referral plans. Demonstrated understanding of instructions, follow-up care. 17:33 Patient left the ED. zb Signatures: Jose Alejandro West MD MD rn Davies, Jonathon, RN RN Pina Rizo RN RN Kofi Sarmiento Zipporah, RN RN zb
--- NOTE | 2020-03-18 17:19 | EDPHYS ---
Physician Documentation [facility] Name: Jeny Crum Age: 29 yrs Sex: Female : 1990 Arrival Date: 03/18/2020 Time: 15:01 Bed 24 Private MD: ED Physician Jose Alejandro West HPI: 03/18 17:07 This 29 yrs old Female presents to ER via Wheelchair with complaints of rn Numbness, Increased Heart Rate. 17:07 The patient's problem is reported as. rn 17:08 The patient presents with a history of heart racing. Context: The symptoms occur at rn rest, with anxiety, with stress. 17:08 Onset: The symptoms/episode began/occurred 1 week(s) ago. 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 Modifying factors: The symptoms are aggravated by anxiety, stress, The symptoms are alleviated by nothing. Associated signs and symptoms: Pertinent negatives: chest pain, fever, SOB, syncope. Severity of symptoms: At their worst the symptoms were mild in the emergency department the symptoms have improved. The patient has experienced similar episodes in the past. Reports had steroid injections in spine for bulging discs, since then has had intermittent palpitations, worse with exertion, stress and anxiety. Reports has had steroids before and very sensitive. No new meds. No focal weakness. Reports feels fine right now. No fever. No acute trauma. . 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 - Social history:: Smoking status: Patient reports the use of cigarette tobacco products, smokes one-half pack cigarettes per day. - Family history:: not pertinent. - Hospitalizations: : No recent hospitalization is reported. ROS: 17:08 Constitutional: Negative for fever, chills, and weight loss, Eyes: Negative for injury, rn pain, redness, and discharge, Neck: Negative for injury, and swelling, Cardiovascular: Negative for chest pain, palpitations, and edema, Respiratory: Negative for shortness of breath, cough, wheezing, and pleuritic chest pain, Abdomen/GI: Negative for abdominal pain, nausea, vomiting, diarrhea, and constipation, Back: Negative for injury MS/Extremity: Negative for injury and deformity, Skin: Negative for injury, rash, and discoloration, Neuro: Negative for headache, weakness, and seizure. Exam: 17:08 Constitutional: This is a well developed, well nourished patient who is awake, alert, rn and in no acute distress. Seems anxious and stressed Head/Face: Normocephalic, atraumatic. Eyes: Pupils equal round and reactive to light, extra-ocular motions intact. Lids and lashes normal. Conjunctiva and sclera are non-icteric and not injected. Cornea within normal limits. Periorbital areas with no swelling, redness, or edema. Neck: Supple, full range of motion without nuchal rigidity, or vertebral point tenderness. No Meningismus. Cardiovascular: Regular rate and rhythm with a normal S1 and S2. No pulse deficits. Respiratory: No increased work of breathing, no retractions or nasal flaring. Skin: Warm, dry MS/ Extremity: Pulses equal, no cyanosis. Neurovascular intact. Full, normal range of motion. Equal circumference. Neuro: Awake and alert, GCS 15, oriented to person, place, time, and situation. Cranial nerves II-XII grossly intact. Motor strength 5/5 in all extremities. Sensory grossly intact. Cerebellar exam normal. Vital Signs: 15:24 BP 117 / 89; Pulse 108; Resp 18 S; Temp 98.8(TE); Pulse Ox 100% on R/A; Weight 54.43 kg ca1 (R); Height 5 ft. 2 in. (157.48 cm) (R); 17:28 BP 122 / 86; Pulse 84; Resp 17 S; Pulse Ox 100% on R/A; jd3 15:24 Body Mass Index 21.95 (54.43 kg, 157.48 cm) ca1 MDM: 16:38 Patient medically screened. rn 17:08 Differential diagnosis: arrythmia, dehydration, stress disorder, anxiety, reaction to rn steroid injections. Data reviewed: vital signs, nurses notes, old medical records, and as a result, I will discharge patient. Counseling: I had a detailed discussion with the patient and/or guardian regarding: the historical points, exam findings, and any diagnostic results supporting the discharge/admit diagnosis, the need for outpatient follow up, to return to the emergency department if symptoms worsen or persist or if there are any questions or concerns that arise at home. Response to treatment: the patient's symptoms have markedly improved after treatment, and as a result, I will discharge patient. Special discussion: I discussed with the patient/guardian in detail that at this point there is no indication for admission to the hospital. It is understood, however, that if the symptoms persist or worsen the patient needs to return immediately for re-evaluation. ED course: Pt asymptomatic, HR in 80s, normal neuro exam, had long discussion regarding spinal stenosis and bulging discs, reviewed simple things she could do, alleviated her anxiety, and she feels much better. No acute problems, will dc home with return precautions. . Administered Medications: No medications were administered Disposition: 03/18/20 17:15 Discharged to Home. Impression: Palpitations. - Condition is Stable. - Discharge Instructions: Chronic Back Pain, Palpitations, Back Exercises. - Medication Reconciliation Form, Thank You Letter, Antibiotic Education, Prescription Opioid Use form. - Follow up: Private Physician; When: As needed; Reason: Recheck today's complaints, Re-evaluation by your physician. - Problem is an ongoing problem. - Symptoms have improved. Signatures: Jose Alejandro West MD MD rn Acob, ANNE MARIE Heller RN, Zipporah, RN RN zliberty Corrections: (The following items were deleted from the chart) 17:33 17:15 03/18/2020 17:15 Discharged to Home. Impression: Palpitations. Condition is zb Stable. Forms are Medication Reconciliation Form, Thank You Letter, Antibiotic Education, Prescription Opioid Use. Follow up: Private Physician; When: As needed; Reason: Recheck today's complaints, Re-evaluation by your physician. Problem is an ongoing problem. Symptoms have improved. rn
== END 2020-03-18 17:33 | disposition home or self-care (01) ==
CPT/HCPCS: 99283